=== PATIENT | female | born 1980 | race Caucasian/White ===

== ENCOUNTER 2024-03-25 07:16 | Emergency (ER) | payer MEDICAID ==
[~2024-03-25] VITALS: Ht 165.1 cm; Wt 100.0 kg
[2024-03-25 07:22] VITALS: O2SAT 100
[2024-03-25] MEDS: TRAMADOL 50MG TABLET PO ONE (07:51)
[2024-03-25] MEDS: IBUPROFEN 600MG TABLET PO ONE (07:51)
[2024-03-25] MEDS: MORPHINE SULFATE 4 MG/ML INJ (FOR IV/IM USE) IV SCH (10:39)
[2024-03-25] MEDS: MORPHINE SULFATE 4 MG/ML INJ (FOR IV/IM USE) IV ONE (15:20)
[2024-03-25] MEDS ORDERED: IBUP-2030 MT (16:00)
[2024-03-25] MEDS ORDERED: TRAM50TA3 MT (16:01)
[2024-03-25 18:17] VITALS: BP 131/78; PULSE 80; RESP 17; TEMP 36.66960; O2SAT 100
== END 2024-03-25 18:18 | disposition home or self-care (01) ==
LOC: ER 08:08
DX: S93.05XA Dislocation of left ankle joint, initial encounter (principal); W50.2XXA Accidental twist by another person, initial encounter; Y93.01 Activity, walking, marching and hiking; Y92.89 Other specified places as the place of occurrence of the external cause; Y99.8 Other external cause status
CPT/HCPCS: 99283; 96374; 73610; 96376; J2270